=== PATIENT | female | born 1985 | race African-American/Black ===

== ENCOUNTER 2016-06-21 20:18 | Emergency (ER) | payer BC, MEDICAID ==
[~2016-06-21] VITALS: Ht 188 cm; Wt 109.0 kg
[~2016-06-21 20:18] MED LIST: MAGICADU2 SWISH-SWAL
[2016-06-21 20:20] VITALS: BP 148/76; PULSE 74; RESP 16; TEMP 98.4; O2SAT 97
--- NOTE | 2016-06-21 21:15 | RADRPT ---
EXAM DATE/TIME: 06/21/2016 20:49 [place] COMPARISON: No previous studies available for comparison. INDICATIONS : Pain after falling. MEDICAL HISTORY : None. SURGICAL HISTORY : None. ENCOUNTER: Initial ACUITY: 1 day PAIN SCORE: 4/10 LOCATION: Right ankle FINDINGS: There are degenerative changes about the ankle. Alignment is anatomic. Acute fracture is not apprec iated. CONCLUSION: Degenerative changes without acute fracture. Catrachito Hare MD FACR on June 21, 2016 at 21:12 Board Certified Radiologist. This report was verified electronically.
[2016-06-21] MEDS ORDERED: DICL75TA PO (22:19)
--- NOTE | 2016-06-21 22:25 | PD ---
HPI Chief Complaint: Injury Time Seen by Provider: 22:21 Travel History International Travel<30 days: No Contact w/Intl Traveler<30days: No Traveled to known affect area: No History of Present Illness HPI 30-year-old black female presents to emergency Department with complaints of right foot pain while playing basketball this afternoon. She states that she planted and went to push off when she felt something pop in her right foot along the arch. She states that she continued to play but hobbled a bit. She states that the pain was only mild at first but now has intensified. She states that she's had stress fractures in her foot before. She denies any numbness, tingling or weakness. Pain is mild. Pain is worse with weightbearing and improved with elevation PFSH Past Medical History Narrative Medical Bilateral stress fractures of the foot Diminished Hearing: No Medical other: Yes (HX OF MRSA) Tetanus Vaccination: < 5 Years ?: Not LMP: 06/14/16 Past Surgical History Abdominal Surgery: Yes (ABSCESS REMOVED) Social History Alcohol Use: No Tobacco Use: No Substance Use: No Allergies-Medications (Allergen,Severity, Reaction): Coded Allergies: No Known Allergies (Unverified , 06/21/16) Reported Meds & Prescriptions Reported Meds & Active Scripts Active Diclofenac Sodium DR (Diclofenac Sodium) 75 Mg Tabdr 75 Mg PO BID Magic Mouthwash Adult Liq (Multi-Ingredient Mouthwash/Gargle) 120 Ml Susp 5 Ml SWISH-SWAL ACHS Each 5 mL contains: Nystatin 200,000 units, Diphenhydramine 4.25 mg, Viscous Lidocaine 10 mg, Gilbert syrup 0.8 mL Review of Systems Except as stated in HPI: all other systems reviewed are Neg Physical Exam Narrative GENERAL: This is a well-nourished, well-developed patient, in no apparent distress. SKIN: No rashes, ecchymoses or lesions. Warm and dry. HEAD: Atraumatic. Normocephalic. EYES: PERRL, EOMI, no discharge or injection. No scleral icterus. EARS: Clear NOSE: Nasal turbinates appear normal. THROAT: Mucosa pink and moist. Airway patent. NECK: Trachea midline. supple, moves head freely. LUNGS: Clear to auscultation. CV: Regular in rhythm. ABDOMEN: Soft nontender. EXT: No clubbing cyanosis or edema. Examination of the right foot reveals pain across the medial portion of the arch and heel. There is no erythema or warmth. The skin is intact. No ecchymosis. No pain of the medial lateral malleolus. No pain over the Achilles or posterior heel. No distal forefoot pain. Data Data Last Documented VS Vital Signs Date Time Temp Pulse Resp B/P Pulse Ox O2 Delivery O2 Flow Rate FiO2 06/21/16 20:20 98.4 74 16 148/76 97 Room Air Orders Ankle, Complete ([id number]) (06/21/16 ) Ice/Cold Pack (06/21/16 22:20) Splint Or Brace Apply/Monitor (06/21/16 22:20) Crutches (06/21/16 22:20) Naproxen (Naprosyn) (06/21/16 22:30) MDM Medical Decision Making Medical Screen Exam Complete: Yes Emergency Medical Condition: Yes Medical Record Reviewed: Yes Interpretation(s) Right foot: Negative for acute bony injury Differential Diagnosis MDM: High Differential diagnoses: Fracture, sprain, strain, dislocation, contusion, neurovascular injury Narrative Course X-ray of the right ankle is negative for bony injury. The patient is placed in an Marcin wrap, crutches, ice pack, Naprosyn 500 mg by mouth. This is right foot sprain Diagnosis Primary Impression: Right foot sprain Qualified Code: S93.601A - Right foot sprain, initial encounter Patient Instructions: General Instructions Additional Instructions: Rest. Elevation. Ice packs for the next 3 days. Marcin wrap and crutches. No weight-bearing and then progress to weight-bearing as tolerated. Medications as directed Follow-up with an orthopedist or your doctor in one week. Return to the ER if any problems Med/Other Pt SpecificInfo: Prescription(s) given Scripts Diclofenac Sodium DR 75 Mg Tabdr75 Mg PO BID #20 TAB Prov:Gordon Asencio MD 06/21/16 Disposition: 01 DISCHARGE HOME Condition: Stable Charles Colón Jun 21, 2016 22:25
[2016-06-21] MEDS ORDERED: NAPROXEN 500 MG TAB PO ONE (22:30)
== END 2016-06-21 23:09 | disposition home or self-care (01) ==
LOC: NEPB 20:18
DX: S93.601A Unspecified sprain of right foot, initial encounter (principal); X50.0XXA Overexertion from strenuous movement or load, initial encounter; Y93.79 Activity, other specified sports and athletics
CPT/HCPCS: 73610; 99283; E0113